=== PATIENT | female | born 1960 | race Caucasian/White ===

== ENCOUNTER 2018-09-23 19:51 | Emergency (ER) | payer BC, OTHER ==
[~2018-09-23] VITALS: Ht 154.9 cm; Wt 70.3 kg
[2018-09-23] MEDS ORDERED: OZEMPIC1 MG/0.75 (20:04)
[2018-09-23] MEDS ORDERED: ATACAND8 MG (20:08)
[2018-09-23] MEDS ORDERED: NORCO 5-325 TA1 EACH PO (21:20)
[2018-09-23 21:41] VITALS: BP 154/78
== END 2018-09-23 21:41 | disposition home or self-care (01) ==
LOC: M.ERS 19:51
DX: S52.591A Other fractures of lower end of right radius, initial encounter for closed fracture (principal); E11.9 Type 2 diabetes mellitus without complications; I10 Essential (primary) hypertension; Z88.5 Allergy status to narcotic agent; W18.39XA Other fall on same level, initial encounter; Y93.51 Activity, roller skating (inline) and skateboarding; Y92.89 Other specified places as the place of occurrence of the external cause; Y99.8 Other external cause status